=== PATIENT | female | born 1950 ===

== ENCOUNTER 2021-02-05 09:06 | Day surgery (SDC) | payer MEDICARE, OTHER, SELFPAY ==
[2021-01-28 11:03] VITALS: BMI 25.3
--- NOTE | 2021-02-04 10:16 | HP_ITS ---
DATE OF SERVICE: 02/05/2021 DATE OF PROPOSED SURGERY: 02/05/2021. PREOPERATIVE DIAGNOSIS: Exostosis dorsum, left first metatarsal cuneiform. PLANNED PROCEDURES: Exostectomy of left first metatarsal cuneiform. PLANNED ANESTHESIA: MAC anesthesia. CHIEF COMPLAINT AND HISTORY OF PRESENT ILLNESS: Anel Denise is a 71-year-old female, who relates history of painful bones on the top of the left midfoot, present over the past several years duration. She relates her pain has progressively worsened over that time. Her pain is aggravated by shoe gear and walking activity. Conservative treatment consisting of altered shoe gear as well as topical anti-inflammatory or pain relief medicines has proven ineffective, and the patient is now requesting surgical treatment. PAST MEDICAL HISTORY: Remarkable for hypertension, hyperlipidemia, hypothyroidism, sciatic pain, and atrial fibrillation. CURRENT MEDICATIONS: Spironolactone, amlodipine, and levothyroxine. ALLERGIES: THE PATIENT HAS NEGATIVE REACTION TO AMOXICILLIN AND SULFA MEDICATION. FAMILY HISTORY: Significant for hypertension, heart disease, and arthritis. SOCIAL HISTORY: The patient denies smoking, denies use of any recreational drugs. The patient does drink 2 to 3 times a week of alcohol and typically drinks 1 cup of coffee per day. PHYSICAL EXAMINATION: VASCULAR EXAM: The patient displays +2/4 pulse. The DP and PT arteries bilaterally with normal capillary refill time noted to bilateral feet. DERMATOLOGIC EXAM: Intact skin. NEUROLOGIC EXAM: Intact sensation. The patient does have sharp pain on palpation, dorsum of left first metatarsal cuneiform joint. ORTHOPEDIC EXAM: Normal, besides the exostosis on the dorsum of the left first metatarsal cuneiform. The patient was seen most recently in my office on 01/22/2021. Preoperative informed consent was obtained from the patient that day for her planned left foot surgery. Preoperative medical clearance will be provided by her primary care physician, Dr. Ligia Horton. YELITZA Mishra/RAGHAV / [id number]
--- NOTE | 2021-02-04 13:00 | HO.ANESPROP2 ---
Documented by User: Alia Zapien NP 02/04/21 13:01 HPI - Anesthesia Eval Consult details Narrative: 71yo F for Left Left 1st Metatarsal Cuneification Exostectomy PCP cleared PENDING SALE TO [facility] Past Medical History Medical History HTN (hypertension) Hyperlipidemia Hypothyroidism Monocytosis Osteoarthritis PAF (paroxysmal atrial fibrillation) Sciatica Seasonal allergic rhinitis Family History Family History Daughter Anesthesia complication Surgical History Surgical History History of excision of pilonidal cyst Hx of colonoscopy Hx of tubal ligation Social History Social History Patient Tobacco Use Status: Former Tobacco user Quit Date: Are you DNR?: No Advance Directives: No Advance Directives Information Provided: Yes Advance Directives on File: No Meds Allergies Allergy/AdvReac Type Severity Reaction Status Date / Time amoxicillin AdvReac yeast Verified 02/05/21 09:43 infection Sulfa (Sulfonamide AdvReac Gastrointestinal Verified 02/05/21 09:43 Antibiotics) Upset Home Medications Medication Instructions Recorded Confirmed Last Taken Type amlodipine 10 mg tablet 10 mg PO DAILY 01/28/21 01/28/21 02/05/21 07:30 History calcium carbonate 600 mg calcium 600 mg PO DAILY 01/28/21 01/28/21 Unknown History (1,500 mg) tablet (Calcium) coenzyme Q10 30 mg capsule (Co 30 mg PO DAILY 01/28/21 01/28/21 Unknown History Q-10) diclofenac sodium 1 % topical gel 4 g TOPICAL QID PRN 01/28/21 01/28/21 Unknown History evening primrose oil 500 mg capsule 500 mg PO DAILY 01/28/21 01/28/21 Unknown History levothyroxine 100 mcg tablet 100 mcg PO DAILY 01/28/21 01/28/21 02/05/21 07:30 History multivitamin 1 tab PO DAILY 01/28/21 01/28/21 Unknown History naproxen sodium 220 mg tablet 220 mg PO BEDTIME PRN 01/28/21 02/05/21 Unknown History (Aleve) red yeast rice 01/28/21 Unknown History spironolactone 25 mg tablet 25 mg PO DAILY 01/28/21 01/28/21 02/05/21 07:30 History aspirin 02/05/21 01/06/21 History Exam Exam Date and Time: February 04, 2021 1300 Height,Weight and Vital Signs: Height 5 ft 7 in Weight 73.482 kg Assessment and Plan Assessment Anesthesia Assessment: Chart Reviewed Documented by User: Rosie Hamm MD 02/05/21 10:54 HPI - Anesthesia Eval Consult details Narrative: 71yo F for Left 1st Metatarsal Cuneification Exostectomy PCP cleared [facility] Active Problems Active Problems: Post nasal drip Past Medical History Medical History HTN (hypertension) Hyperlipidemia Hypothyroidism Monocytosis Osteoarthritis PAF (paroxysmal atrial fibrillation) Sciatica Seasonal allergic rhinitis Family History Family History Daughter Anesthesia complication Family history of problems with anesthesia: Yes (Daughter had problem with succinylcholine? Masseter spasm. Many surgeries since with no problems) Surgical History Surgical History History of excision of pilonidal cyst Hx of colonoscopy Hx of tubal ligation History of Problems with Anesthesia: No Social History Social History Patient Tobacco Use Status: Former Tobacco user Quit Date: 1959' Are you DNR?: No Advance Directives: No Advance Directives Information Provided: Yes Advance Directives on File: No Meds Allergies Allergy/AdvReac Type Severity Reaction Status Date / Time amoxicillin AdvReac yeast Verified 02/05/21 09:43 infection Sulfa (Sulfonamide AdvReac Gastrointestinal Verified 02/05/21 09:43 Antibiotics) Upset Home Medications Medication Instructions Recorded Confirmed Last Taken Type amlodipine 10 mg tablet 10 mg PO DAILY 01/28/21 01/28/21 02/05/21 07:30 History calcium carbonate 600 mg calcium 600 mg PO DAILY 01/28/21 01/28/21 Unknown History (1,500 mg) tablet (Calcium) coenzyme Q10 30 mg capsule (Co 30 mg PO DAILY 01/28/21 01/28/21 Unknown History Q-10) diclofenac sodium 1 % topical gel 4 g TOPICAL QID PRN 01/28/21 01/28/21 Unknown History evening primrose oil 500 mg capsule 500 mg PO DAILY 01/28/21 01/28/21 Unknown History levothyroxine 100 mcg tablet 100 mcg PO DAILY 01/28/21 01/28/21 02/05/21 07:30 History multivitamin 1 tab PO DAILY 01/28/21 01/28/21 Unknown History naproxen sodium 220 mg tablet 220 mg PO BEDTIME PRN 01/28/21 02/05/21 Unknown History (Aleve) red yeast rice 01/28/21 Unknown History spironolactone 25 mg tablet 25 mg PO DAILY 01/28/21 01/28/21 02/05/21 07:30 History aspirin 02/05/21 01/06/21 History Exam Height,Weight and Vital Signs: Height 5 ft 7 in Weight 73.482 kg Vital Signs Temp Pulse Resp BP Pulse Ox 02/05/21 09:54 98.4 F 64 16 141/64 H 99 Airway Mallampati Class: II TM Dist: >3cm Neck ROM: Full Loose/Missing/Broken Teeth: No Heart: RRR Lungs: CTAB Assessment and Plan Assessment Anesthesia Assessment: Anesthesia Plan Discussed Final Anesthetic Review Family History of Problems with Anesthesia: Yes (Daughter had problem with succinylcholine? [place] spasm. Many surgeries since with no problems) History of Problems with Anesthesia: No NPO: Yes ASA Class: II Final Preanesthetic Review: No Changes in Pt Med Stat, Meds/Allgs Chart Reviewed, Consent Obtained/Reviewed and Anes Risks/Benef Reviewed Patient Risk: Low Procedure Risk: Low Assessment/Block/Sedation in SS: Assess/Block/Sedation-SS Anesthetic Plan Anesthetic Plan: GA and MAC: Disposition: Standard PACU
[2021-02-05 09:54] VITALS: BP 141/64; PULSE 64; RESP 16; TEMP 36.9; O2SAT 99
[2021-02-05] MEDS: Lactated Ringers 1,000 ML 100 ML IVCONT (10:12)
--- NOTE | 2021-02-05 11:04 | MHC.SHP ---
Pre-Procedural Eval Section A Date of Service: 02/05/21 The patient is an INPATIENT: No Changes since office visit: No Cold of Flu in the past 2 weeks, No New Medical Problems, No Changes in Medication and No Patient answered all questions The History & Physical has been completed within 30 days and I have reviewed it.: Yes Section B Chief Complaint: Exatosis Left First Metarastal Cuneform Relevant Family History (Specify if Yes): No Relevant Social History: None Present Medications: see Short Stay Collaborative assessment Medical History: No relevant PMH History of Previous Operations: No relevant previous surgery Allergies: Allergies Allergy/AdvReac Type Severity Reaction Status Date / Time amoxicillin AdvReac yeast Verified 02/05/21 09:43 infection Sulfa (Sulfonamide AdvReac Gastrointestinal Verified 02/05/21 09:43 Antibiotics) Upset Plan Diagnosis/Plan: Unchanged I have reviewed the history and physical and performed a pertinent physical examination on my patient. No changes have occurred unless specified.
--- NOTE | 2021-02-05 12:05 | PCN2_ITS ---
Brief Operative Note Date of procedure: 02/05/21 Pre-op diagnosis: exostosis dorsum left first metatarsal-cuneiform Post-op diagnosis: same Procedure: exostectomy left first metatarsal-cuneiform Anesthesia: MAC Surgeon: Dusty Shepherd [employer] Management Specialist: Ceci Anne Estimated blood loss (mL): 0 Condition: stable Disposition: PACU
[2021-02-05 12:10] VITALS: BP 116/51; PULSE 60; RESP 14; TEMP 36.3; O2SAT 95
[2021-02-05 12:25] VITALS: BP 141/58; PULSE 56; RESP 16; O2SAT 100
[2021-02-05 12:40] VITALS: BP 130/50; PULSE 53; RESP 16; TEMP 36.3; O2SAT 99
--- NOTE | 2021-02-05 12:44 | OP_ITS ---
SURGEON: Dusty Shepherd DPM PREOPERATIVE DIAGNOSIS: Exostosis, dorsum of left first metatarsal cuneiform. POSTOPERATIVE DIAGNOSIS: Exostosis, dorsum of left first metatarsal cuneiform. PROCEDURE PERFORMED: Exostectomy, dorsum of left first metatarsal cuneiform. ESTIMATED BLOOD LOSS: COMPLICATIONS: ANESTHESIA: Consisted of local administration of a total of 9 mL of an equal mix of 2% lidocaine with epinephrine 1:100,000 and 0.5% Marcaine plain. Intravenous sedation was provided by the Anesthesia Department. ASSISTANTS: Dr. Anne. SPECIMENS: INTRODUCTION: The patient was brought to the operating room, placed on the operating table in the supine position. After having been suitably anesthetized with local infiltrative anesthesia, the left lower extremity was then prepped and draped in the usual sterile manner. Please note that prior to start of the procedure, the left foot was exsanguinated with an Esmarch bandage and left ankle tourniquet was inflated to 250 mmHg pressure for the duration of the procedure. EXOSTECTOMY, DORSUM OF LEFT FIRST METATARSAL CUNEIFORM. Attention was directed to the dorsum of the left first metatarsocuneiform joint, where an incision approximately 4 cm in length was effected and centered over the dorsum of the joint. The incision was deepened in same plane and hemostasis was acquired as necessary. The skin margins were underscored and retracted. The incision was carried down deeply through the deep subcutaneous tissue and then dorsal linear incision was effected through the capsule and periosteum of this joint. Capsule and periosteum were underscored and retracted. Utilizing a curved digital osteotome, the exostosis was removed from the dorsum of the left first metatarsal cuneiform and then remaining bone was smoothed down utilizing a power reciprocating rasp as well as bone rongeur. The wound was irrigated. The exposed cancellous bone was packed with bone wax. Capsule was then closed with 3-0 Vicryl. Skin margins were closed with combination of running subcuticular 4-0 Maxon and then reinforced with 4-0 nylon simple sutures. CONCLUSION: At the conclusion of this procedure, the operative site was also dressed with half-inch Steri-Strips and then injected with a total of 5 mL of Marcaine 0.5% plain and 1 mL of dexamethasone phosphate. Sterile dressings were applied to the left lower extremity. The left ankle tourniquet was deflated. Normal blood flow was reestablished to the left lower extremity. FINAL DISPOSITION: The patient is discharged to home with instructions for self-care and include the followin. To keep the dressings dry, clean, and intact. 2. To keep the left leg elevated with ice above the ankle. 3. To take all medications as prescribed. 4. To limit activity to minimum. 5. To always use surgical shoe and crutches with partial weightbearing of the left lower extremity. 6. Lastly, the patient already has prescriptions at home for naproxen 500 mg total number of 60 one p.o. b.i.d. p.c. The patient is also instructed to take Tylenol in addition and is given prescription for gabapentin 100 mg, total number of 10 one p.o. daily at bedtime. YELITZA Mishra/RAGHAV / [id number]
== END 2021-02-05 13:16 | disposition home or self-care (01) ==
PROVIDERS: PCP Internal Medicine; Visit Provider Podiatrist
PROC: (CPT 28288; principal; 2021-02-05 11:00)
DX: M89.8X7 Other specified disorders of bone, ankle and foot (principal); M25.775 Osteophyte, left foot; M17.12 Unilateral primary osteoarthritis, left knee; I10 Essential (primary) hypertension; I48.0 Paroxysmal atrial fibrillation; E78.5 Hyperlipidemia, unspecified; E03.9 Hypothyroidism, unspecified; J30.9 Allergic rhinitis, unspecified; M54.30 Sciatica, unspecified side; R25.2 Cramp and spasm; Z79.1 Long term (current) use of non-steroidal anti-inflammatories (NSAID); Z88.0 Allergy status to penicillin; Z87.891 Personal history of nicotine dependence; Z79.82 Long term (current) use of aspirin
CPT/HCPCS: 28288; 88304; 88305; 88311; J0690; J1100; J3010